=== PATIENT | male | born 1955 | race Caucasian/White ===

== ENCOUNTER 2023-11-25 21:01 | Emergency (ER) | payer BC, MEDICARE ==
[2023-11-25 21:53] LABS: BASOPHILS ABSOLUTE AUTO 0.1 K/mm3 (0.0-0.2); BASOPHILS PERCENT AUTO 0.3 % (0.0-1.0); EOSINOPHILS ABSOLUTE AUTO 0.2 K/mm3 (0.0-0.4); EOSINOPHILS PERCENT AUTO 0.9 % (0.0-6.0); HEMATOCRIT 52.8 % (42.0-52.0); HEMOGLOBIN 17.9 gm/dl (14.0-18.0); IMMATURE GRAN ABSOLUTE AUTO 0.12 K/mm3 (0.00-0.05); IMMATURE GRAN PERCENT AUTO 0.6 % (0.0-0.4); LYMPHOCYTES ABSOLUTE AUTO 1.5 K/mm3 (1.0-4.8); LYMPHOCYTES PERCENT AUTO 7.9 % (24.0-44.0); MEAN CORPUSCULAR HEMOGLOBIN 27.7 pg (28.0-32.0); MEAN CORPUSCULAR HGB CONC 33.9 g/dl (32.0-36.0); MEAN CORPUSCULAR VOLUME 81.7 fl (83.0-99.0); MEAN PLATELET VOLUME 8.9 fl (9.4-12.4); MONOCYTES ABSOLUTE AUTO 0.9 K/mm3 (0.0-0.8); MONOCYTES PERCENT AUTO 4.8 % (0.0-8.0); NEUTROPHILS PERCENT AUTO 85.5 % (41.0-71.0); PLATELET COUNT,PLT 339 K/mm3 (150-400); RED BLOOD CELL COUNT 6.46 M/mm3 (4.52-5.90); WHITE BLOOD CELL COUNT,WBC 18.77 K/mm3 (3.9-11.3)
[2023-11-25] MEDS: Sodium Chloride 0.9% 1,000 ML IV ONE ×2 (22:05→23:37)
[2023-11-25] MEDS: Ondansetron 4 MG/2 ML SDV IVPUSH ONE (22:05)
[2023-11-25] MEDS: HYDROmorphone 0.5 MG/0.5 ML Syringe IVPUSH ONE (22:06)
[2023-11-25] MEDS: Sodium Chloride 0.9% 10 ML Syringe FLUSH PRN (22:07)
[2023-11-25 22:13] LABS: ALBUMIN 4.7 g/dl (3.4-5.0); ANION GAP 17.2 (5-15); BILIRUBIN TOTAL 0.6 mg/dL (0.2-1.0); BUN/CREATININE RATIO 20.6 (14-18); C-REACTIVE PROTEIN 0.62 mg/dL (<0.30); CALCIUM 9.3 mg/dL (8.5-10.1); CREATININE 1.6 mg/dL (0.7-1.3); EST CRCL DRUG DOSING (CG) 48.55 mL/min; POTASSIUM,K 3.2 mEq/L (3.5-5.1); PROTEIN TOTAL,TP 9.5 g/dl (6.4-8.2)
[2023-11-25] MEDS: Sodium Chloride 0.9% 10 ML Syringe FLUSH ONE (22:58)
[2023-11-25] MEDS: Iopamidol 612 MG/ML 100 ML Bottle IVPUSH ONE (22:58)
[2023-11-25 23:15] LABS: APPEARANCE,URINE CLOUDY (Clear); BILIRUBIN,URINE NEGATIVE (Negative); COLOR,URINE YELLOW (Yellow); GLUCOSE,URINE NEGATIVE (Negative); KETONES,URINE NEGATIVE (Negative); LEUKOCYTE ESTERASE,URINE NEGATIVE (Negative); NITRITE,URINE NEGATIVE (Negative); OCCULT BLOOD,URINE NEGATIVE (Negative); PH,URINE 5.5 (5.0-8.0); PROTEIN,URINE 1+ (Negative); UROBILINOGEN,URINE 0.2 (0.2-1.0)
[2023-11-25 23:32] LABS: BACTERIA,URINE FEW /hpf (FEW); CALCIUM OXALATE CRYSTALS,URINE FEW; HYALINE CASTS,URINE 20-30 /lpf (0-5); MUCUS,URINE FEW /hpf (FEW); RBC,URINE 0-5 /hpf (0-5); SQUAMOUS EPITHELIAL CELLS,UR 0-5 /hpf (0-5); WBC,URINE 0-5 /hpf (0-5)
[2023-11-26 01:00] VITALS: BP 135/86; PULSE 81
== END 2023-11-26 00:32 | disposition home or self-care (01) ==
LOC: JD.ED 21:01
DX: A08.4 Viral intestinal infection, unspecified (principal); I10 Essential (primary) hypertension; J45.909 Unspecified asthma, uncomplicated; Z79.51 Long term (current) use of inhaled steroids; Z79.899 Other long term (current) drug therapy; Z90.49 Acquired absence of other specified parts of digestive tract
CPT/HCPCS: 36415; 74177; 74177-26; 80053; 81001; 83690; 85025; 86140; 96361; 96374; 96375; 99283; 99284-25; J1170; J2405; J3490; J7030; Q9967